=== PATIENT | female | born 1950 | race Caucasian/White ===

== ENCOUNTER 2016-08-15 19:44 | Emergency (ER) | payer OTHER ==
[~2016-08-15] VITALS: Ht 157.5 cm; Wt 74.5 kg
[2016-08-15] MEDS ORDERED: HYDR25TA PO (23:07)
[2016-08-16] MEDS ORDERED: DiphenhydrAMINE HCL 25 MG CAPSULE PO ONE (01:00)
[2016-08-16] MEDS ORDERED: ACETAMINOPHEN/CODEINE 300-30 MG TABLET PO ONE (01:00)
[2016-08-16] MEDS ORDERED: GuaiFENesin/D-METHORPHAN [SUGAR-FREE] 200-20MG/10 ML SYRUP UDCUP PO ONE (01:00)
[2016-08-16 01:01] VITALS: BP 112/66
== END 2016-08-16 01:10 | disposition home or self-care (01) ==
LOC: EMS 19:49
DX: J06.9 Acute upper respiratory infection, unspecified (principal); I10 Essential (primary) hypertension
CPT/HCPCS: 99284

== ENCOUNTER 2018-07-04 10:37 | Emergency (ER) | payer MEDICARE, OTHER ==
[~2018-07-04] VITALS: Ht 157.5 cm; Wt 167.0 kg
[~2018-07-04 10:37] MED LIST: HYDR25TA PO
[2018-07-04] MEDS ORDERED: CARV6 PO (11:16)
[2018-07-04] MEDS ORDERED: ALEN70TA48 PO (11:16)
[2018-07-04] MEDS: NAPROXEN 250 MG TABLET PO ONE (12:31)
[2018-07-04] MEDS: CYCLOBENZAPRINE HCL 10 MG TABLET PO ONE (12:31)
[2018-07-04] MEDS: LIDOCAINE 5% TRANSDERMAL PATCH TD ONE (12:31)
[2018-07-04 14:03] VITALS: BP 134/72
== END 2018-07-04 14:04 | disposition home or self-care (01) ==
LOC: EMS 10:38
DX: M48.54XA Collapsed vertebra, not elsewhere classified, thoracic region, initial encounter for fracture (principal); I10 Essential (primary) hypertension
CPT/HCPCS: 72100

== ENCOUNTER 2021-05-01 18:39 | Emergency (ER) | payer OTHER ==
[~2021-05-01] VITALS: Ht 152.4 cm; Wt 72.7 kg
[~2021-05-01 18:39] MED LIST changes: +ALEN70TA65 PO; +CARV6 PO; -HYDR25TA PO; +HYDR25TA2 PO
[2021-05-01] MEDS ORDERED: ONDANSETRON HCL 4 MG TABLET PO ONE (19:15)
[2021-05-01] MEDS ORDERED: ACETAMINOPHEN 500 MG TABLET PO ONE (19:15)
[2021-05-01] MEDS ORDERED: MECLIZINE HCL 25 MG TABLET PO ONE (19:15)
[2021-05-01 19:30] LABS: BASOPHILS % (AUTO) 0.8 % (0.0-2.0); EOSINOPHILS % (AUTO) 1.2 % (1.0-6.0); HEMATOCRIT 37.1 % (36-46); HEMOGLOBIN 11.8 g/dL (12.0-16.0); LYMPHOCYTES # (AUTO) 2.4 K/uL (1.0-4.8); LYMPHOCYTES % (AUTO) 27.6 % (22.0-44.0); MEAN CORPUSCULAR HEMOGLOBIN 23.6 pg (26.0-34.0); MEAN CORPUSCULAR HGB CONC 31.8 G/dL (31.0-37.0); MEAN CORPUSCULAR VOLUME 74 fL (80-100); MONOCYTES # (AUTO) 0.5 K/uL (0.1-1.0); MONOCYTES % (AUTO) 6.1 % (2.0-9.0); NEUTROPHILS # (AUTO) 5.5 K/uL (1.8-7.7); NEUTROPHILS % (AUTO) 64.3 % (40.0-70.0); PLATELET COUNT (AUTO) 340 K/uL (150-450); RED BLOOD CELL COUNT(AUTO) 5.01 MIL/uL (4.00-5.20); RED CELL DISTRIBUTION WIDTH 14.3 % (11.5-14.5)
[2021-05-01 19:41] LABS: ANION GAP 7 mmol/L (8-16); CALCIUM, TOTAL 8.3 mg/dL (8.8-10.5); CARBON DIOXIDE 27 mmol/L (22-29); CHLORIDE 101 mmol/L (98-107); CREATININE 0.52 mg/dL (0.60-1.30); GLOMERULAR FILTR. RATE CALC > 60 mL/min (>60); GLUCOSE,RANDOM 182 mg/dL (70-110); POTASSIUM 3.7 mmol/L (3.5-5.1); SODIUM SERUM 135 mmol/L (136-145); UREA NITROGEN, BLOOD 18 mg/dL (7-18)
[2021-05-01 19:57] LABS: ALANINE AMINOTRANSFERASE 22 U/L (12-78); ALBUMIN 3.4 g/dL (3.4-5.0); ALKALINE PHOSPHATASE 67 U/L (46-116); ASPARTATE AMINOTRANSFERASE 14 U/L (15-37); BILIRUBIN,TOTAL 0.2 mg/dL (0.1-1.0); TOTAL PROTEIN, SERUM 7.2 g/dL (6.4-8.2)
[2021-05-01 20:49] VITALS: BP 133/69
== END 2021-05-01 21:36 | disposition home or self-care (01) ==
LOC: EMS 18:40
DX: R42 Dizziness and giddiness (principal); R73.9 Hyperglycemia, unspecified; I10 Essential (primary) hypertension
CPT/HCPCS: 36415; 70450; 80053; 84484; 85025; 93005; 99285; Q0162